=== PATIENT | female | born 1995 | race Caucasian/White ===

== ENCOUNTER 2018-03-22 22:22 | Observation (INO) ==
[2018-03-22 22:49] LABS: Bilirubin,Urine Negative (Negative); Blood,Urine Negative (Negative); Clarity,Urine Cloudy (Clear); Color,Urine Yellow (Yellow); Glucose,Urine (UA) 100 mg/dL (Normal); Ketones,Urine Negative (Negative); Leukocyte Esterase,Urine Small (Negative); Nitrite,Urine Negative (Negative); PH,Urine 6.5 pH Units (5.0-8.0); Protein,Urine 30 mg/dL (Neg-Trace); Specific Gravity,Urine > 1.030 (1.010-1.025); Urobilinogen,Urine Normal (Normal)
[2018-03-22 22:55] LABS: Bacteria,Urine Many per hpf (None-Few); Hyaline Casts,Urine Few per lpf (None-Few); Squamous Epithelial Cell,Urine Many per lpf (None-Few); WBC,Urine 15-30 per hpf (0-3)
--- NOTE | 2018-03-22 22:57 | OB/GYN Progress Note ---
Date of Encounter: 03/23/18 Time of Encounter: 22:54 - Assessment and Plan (1) 38 weeks gestation of Current Visit: Yes Status: Acute (2) Uterine contractions Current Visit: Yes Status: Acute No change on serial cervical exams. Discharged home with labor and when to return to triage precautions. Subjective - Subjective Interval history: 38+ weeks gestation presents to triage for evaluation of contractions. Patient states she started having contractions approximately 5:00 this evening. Since states they were getting closer together approximately 3-5 minutes apart. Reports good movement, denies vaginal bleeding or leaking of fluid. care with Dr. Gardiner Antepartum ROS: movement normal, contractions, no loss of fluid, no vaginal bleeding Objective - Vital Signs Vital Signs: Intake and Output 03/22/18 03/22/18 03/22/18 07:59 15:59 23:59 Other: Weight 83.9 kg Patient Weight 03/22/18 23:59 Weight 83.9 kg - Exam FHR: auscultation normal FHR comments: Baseline 125 Abdomen: Present: normal appearance, soft, gravid Cervical dilation: 3 per RN - Labs Labs: Abnormal lab results Urine Clarity Cloudy (Clear) A 03/22/18 22:37 Ur Specific [place] > 1.030 (1.010-1.025) H 03/22/18 22:37 Urine Protein 30 mg/dL (Neg-Trace) H 03/22/18 22:37 Urine Glucose (UA) 100 mg/dL (Normal) H 03/22/18 22:37 Ur Leukocyte Esterase Small (Negative) H 03/22/18 22:37
[2018-03-22 22:58] LABS: Amphetamine Screen,Urine Negative ng/mL (Cutoff=1000); Barbiturate Screen,Urine Negative ng/mL (Cutoff=200); Benzodiazepines Screen,Urine Negative ng/mL (Cutoff=200); Cannabinoid Screen,Urine Negative ng/mL (Cutoff = 50); Cocaine Screen,Urine Negative ng/mL (Cutoff= 300); Opiate Screen,Urine Negative ng/mL (Cutoff=300); Phencyclidine Screen,Urine Negative ng/mL (Cutoff=25)
== END 2018-03-22 23:50 | disposition home or self-care (01) ==
LOC: 1NENULAB
PROVIDERS: ADMIT Advanced Practice Midwife; ATTEND Advanced Practice Midwife

== ENCOUNTER 2018-03-24 06:00 | Inpatient (IN) ==
[2018-03-24] MEDS ORDERED: Metoclopramide 10 MG/2 ML VIAL IVP PRN (06:40)
[2018-03-24] MEDS ORDERED: Famotidine 20 MG/2 ML VIAL IVP PRN (06:40)
[2018-03-24] MEDS ORDERED: Lidocaine 1% 20 ML MDV INFILT PRN (06:40)
[2018-03-24] MEDS ORDERED: Naloxone 0.4 MG/ML INJ IVP PRN (06:40)
[2018-03-24 07:11] LABS: Basophils % 0.3 %; Eosinophils # 0.1 K/mcL (0.0-0.6); Eosinophils % 1.6 %; Hematocrit 37.7 % (35.3-44.9); Hemoglobin 12.2 g/dL (11.5-15.4); Immature Granulocytes % 0.3 % (0-4); Lymphocytes # 2.1 K/mcL (0.6-4.6); Lymphocytes % 24.4 %; Mean Corpuscular HGB Conc 32.4 g/dL (31.6-35.5); Mean Corpuscular Hemoglobin 27.2 pg (28.0-33.3); Mean Corpuscular Volume 84.2 fL (83.0-100.0); Mean Platelet Volume 10.2 fL (9.4-12.4); Monocytes # 0.7 K/mcL (0.0-1.3); Monocytes % 8.5 %; Neutrophils # 5.6 K/mcL (1.6-8.9); Platelet Count 260 K/mcL (140-400); Red Blood Count 4.48 M/mcL (3.82-4.97); Red Cell Distribution Width 12.9 % (11.5-14.5); Segmented Neutrophils % 64.9 %
[2018-03-24 07:29] LABS: Amphetamine Screen,Urine Negative ng/mL (Cutoff=1000); Barbiturate Screen,Urine Negative ng/mL (Cutoff=200); Benzodiazepines Screen,Urine Negative ng/mL (Cutoff=200); Cannabinoid Screen,Urine Negative ng/mL (Cutoff = 50); Cocaine Screen,Urine Negative ng/mL (Cutoff= 300); Opiate Screen,Urine Negative ng/mL (Cutoff=300); Phencyclidine Screen,Urine Negative ng/mL (Cutoff=25)
--- NOTE | 2018-03-24 07:58 | Anesthesia Evaluation PreOp ---
Date of Encounter: 03/24/18 Time of Encounter: 07:56 - Past History Planned Operation: daphne Cardiac History: Denies any Significant Hx Pulmonary History: Denies Any Significant HX P[employer]ER History: Denies Any Significant HX Other Medical History: GERD Anesthesia History: No Prior Anesthetic Complications, Past Anesthesia (daphne) : Yes Test: Positive Alcohol Use: none Drug use: none Medications and Allergies Vit/Iron Fumarate/FA [ Tablet] 1 each PO DAILY 03/22/18 [ History] 3 Allergy/AdvReac Type Severity Reaction Status Date / Time ondansetron AdvReac Vomiting Verified 03/24/18 06:24 [From Zofran (as hydrochloride)] sulfamethoxazole AdvReac Dizziness Verified 03/24/18 06:24 [From Bactrim] trimethoprim [From Bactrim] AdvReac Dizziness Verified 03/24/18 06:24 - Meds/Allergy Pre-op Review Medications Reviewed: Yes Allergies Reviewed: Yes Beta Blockers on Current Med List: No Anesthesia Results - Labs 03/24/18 06:41 Anesthesia Exam 112/72 93 fht 134 Height: 5'3" Weight: 84 kg NPO (# of Hours): 3 Pain Scale: 2 Pain Scale Used: Numeric (1 - 10) - HEENT Pupil (Motor): Pupils equal Mallampati: II Teeth: Normal Oral Opening: Greater than 3 - PLASTIC [employer]ER LOC: Oriented P[employer] Motor: Normal RUE, Normal LUE, Normal RLE, Normal LLE, Normal Face [employer] Sensory: Normal: RUE, LUE, RLE, LLE, Face - Cardiac Rhythm: Regular Murmur: None - Pulmonary Breath Sounds: bilateral Clear Respiratory Effort: Symmetrical Anesthesia Assess/Plan ASA Score: 2 Modified Regla Scale for Level of Consciousness: Cooperative, oriented, and tranquil Anesthetic Plan: Regional Autologous Blood: No Monitoring Plan: Standard Monitors Recovery Plan: Other (risks discussed, questions answered, consented)
[2018-03-24] MEDS: Ringers Solution, Lactated 1,000 ML IVC SCH ×2 (08:26→12:12)
--- NOTE | 2018-03-24 08:32 | OB/GYN History & Physical ---
Date of Encounter: 03/24/18 Time of Encounter: 08:29 Assessment and Plan (1) 39 weeks gestation of Current visit: Yes Status: Acute Patient 22-year-old 3 para 1 female presents at 9 weeks gestation for induction of labor. On arrival she was having irregular contractions she did have 2 subtle-appearing late decelerations. Cervix is 3 cm dilated 80% effaced -2 station is vertex. Currently does have reactive nonstress test without decelerations. IV is in place we will proceed with amniotomy. The baby tolerates labor induced by amniotomy the contractions remain insufficient make later consider augmentation with Pitocin. History of Present Illness Chief complaint: Here for induction HPI: Ms. Cramer is a 22 year old female female at 39w2d presents for induction of labor. This complicated only by hyperemesis early . She has recently complaints of decreased movement and has history of prior induction for asymmetric intrauterine growth restriction. She has been followed with serial ultrasounds this and has had normal growth with borderline polyhydramnios. Upon arrival she reports irregular contractions. In office yesterday her cervical exam was 3 and a meters dilated 80% effaced with -2 station and vertex presentation. Past Med Surg Social Fam HX - Past Medical History Medical history: no medical history Psychiatric history: no psych history - Past Surgical History Surgical History: other - Social History Smoking Status: Former smoker Smokeless Tobacco Status: No Alcohol use: none Drug use: none - Family History Mother Living Status: Still Living Hx Family Cardiac Disorders: No Hx Family Respiratory Disorders: No Hx Family Cancer: No Hx Family GI Disorders: No Hx Family Endocrine Disorder: No Hx Family Neuromuscular Disorders: No Hx Family Neurologic Disorders: No Hx Family HEENT Disorders: No Hx Family Autoimmune Disorders: No Obstetrical History - Pregnancies : 3 Ab's: 1 Medications and Allergies Vit/Iron Fumarate/FA [ Tablet] 1 each PO DAILY 03/22/18 [ History] 3 Allergy/AdvReac Type Severity Reaction Status Date / Time ondansetron AdvReac Vomiting Verified 03/24/18 06:24 [From Zofran (as hydrochloride)] sulfamethoxazole AdvReac Dizziness Verified 03/24/18 06:24 [From Bactrim] trimethoprim [From Bactrim] AdvReac Dizziness Verified 03/24/18 06:24 Exam - Constitutional Constitutional: well developed, well nourished - HEENT HEENT: EOMI, PERRL - Neck Neck exam: full ROM - Lungs Respiratory exam: CTAB - Cardiovascular Cardiovascular exam: RRR - Abdomen Abdomen: Present: gravid - Extremities Extremities exam: full ROM Deep Tendon Reflex Grade: 2+ Normal - Cervix Dilation: 3 Effacement: 80 Station: -2 Results Result Diagrams: 03/24/18 06:41 Abnormal lab results MCH 27.2 pg (28.0-33.3) L 03/24/18 06:41 All other labs normal. - VTE Reasons for not Prescribing Prophylaxis: Treatment not Indicated - Low risk for VTE
--- NOTE | 2018-03-24 08:36 | OB Labor Progress Note ---
Date of Encounter: 03/24/18 Time of Encounter: 08:34 Labor Progress Note - Subjective Subjective: Patient complains of irregular contractions - Cervix Cervix: 3 similar is dilated, 80% effaced, -2 station - Heart Tones Heart Tones: Reactive nonstress testing without decelerations at this time - Gerty Gerty: Irregular contractions noted which are subjectively mild - Interventions Interventions: Amniotomy performed of moderate amount of moderate meconium-stained fluid - Plan Plan: We will expect spontaneous vaginal delivery. Patient did have question of subtle late decelerations earlier upon arrival to to follow heart tones closely anesthesia has been consulted IV is in place patient is aware that if heart tension again looked questionable section may be required. We will take appropriate measures at delivery because of meconium-stained fluid
[2018-03-24] MEDS ORDERED: *HR* FentaNYL (PF) 100 MCG/2 ML VIAL EP ONE (11:39)
[2018-03-24] MEDS ORDERED: *HR* Ropivacaine/PF 0.2% 20 ML VIAL EP ONE (11:39)
[2018-03-24] MEDS ORDERED: Epidural Premix (fent/bupiv) 110 ML EP SCH (11:45)
[2018-03-24] MEDS ORDERED: Epidural Premix (fent/bupiv) 110 ML EP ONE (11:47)
--- NOTE | 2018-03-24 12:14 | Anesthesia Procedures ---
Date of Encounter: 03/24/18 Time of Encounter: 12:12 Procedures: Anesthesia - Epidural/Spinal Patient ID/Chart reviewed: Yes Patient examined: Yes OB Eval: Gestational age: 39 OB Eval: : 3 OB Eval: Hx Para: 1 OB Eval: Dilated at (cm): 5 OB Eval: Contractions: Non-stressed pattern Consent Obtained: Yes Supplemental Oxygen: None/Room Air Site Prep: Aseptic Technique, Sterile prep and drape, 0.5% Chlorhexidine/Alcohol Patient position: upright Local Anesthetic: Lidocaine 1% Amount of Local Anesthetic used: 3 Touhy Needle Gauge: 18 Touhy Needle Depth (cm): 6 Catheter Depth at Skin (cm): 15 Test Dose (1.5% Lido + Epi): Volume given (mls): 3 Test Dose Result: Negative Loading Dose: Fentanyl (mcg): 100 Loading Dose: Other: rop 0.2% 10cc Loading Dose Administered: Thru Touhy Needle Infusion Med: 0.125% Bupivacaine w/ 2 mcg/ml Fentanyl Infusion Rate (mls/hr): 15 (pcea 5cc q30") Catheter Secured in Place: Tegaderm Interspace Used: L2-L3 Loss of Resistance (JAN): Yes Blood: No CSF: No Paresthesia: No Procedure: aseptic, tolerated well, VSS, effective Vitals + FHT's: 122/78 88 fht 133
[2018-03-24] MEDS ORDERED: EPHEDrine 50 MG/ML VIAL ONE (12:15)
[2018-03-24] MEDS ORDERED: Oxytocin 20 units/ LR 1000 mL 20 UNIT/1,000 ML BAG IVC ONE (13:38)
[2018-03-24] MEDS ORDERED: Oxytocin 20 units/ LR 1000 mL 20 UNIT/1,000 ML BAG IVC SCH ×2 (13:45→19:29)
--- NOTE | 2018-03-24 16:54 | OB/GYN Procedure Note ---
Delivery - Delivery Date: 03/24/18 Provider: Jaime Herndon Intrapartum events: none Delivery induction: AROM Delivery augmentation: pitocin Delivery monitor: external FHT, external uterine Anesthesia: epidural Quantitated Blood Loss: 100 - (s) Infant A Infant Delivery Date: 03/24/18 Infant Delivery Time: 16:38 Presentation: vertex Position: CARLOS Route of delivery: Gender: Female Viability: Viable Pounds: 6 Ounces: 13 at 1 minute: 9 at 5 mins: 9 Specimens collected: cord blood Placenta: spontaneous Cord: 3 umbilical vessels - Repair Episiotomy: none Laceration Description: None - Complications Delivery complications: none - Disposition Mom disposition: stable in LDR disposition: stable in LDR - Comments Comments: Pt s/p of liveborn female infant over intact perineum from CARLOS without incident. Cord clamped and cut and taken to warmer where respiratory therapy was in attendance. Spont delivery of meconium stained placenta. EBL 100. Mother and recovered in LDR.
[2018-03-24] MEDS ORDERED: Measles/Mumps/Rubella Vacc 0.5 ML VIAL SQ PRN (19:29)
[2018-03-24] MEDS ORDERED: Rho Immune Globulin 1,500 UNIT SYRINGE IM PRN (19:29)
[2018-03-24] MEDS ORDERED: Acetaminophen 325 MG TABLET PO PRN (19:29)
[2018-03-24] MEDS: Ibuprofen 600 MG TABLET PO PRN (20:38)
[2018-03-25 04:35] LABS: Basophils % 0.2 %; Eosinophils # 0.1 K/mcL (0.0-0.6); Eosinophils % 1.1 %; Hematocrit 31.7 % (35.3-44.9); Immature Granulocytes % 0.2 % (0-4); Lymphocytes % 19.4 %; Mean Corpuscular HGB Conc 32.5 g/dL (31.6-35.5); Mean Corpuscular Hemoglobin 27.3 pg (28.0-33.3); Mean Corpuscular Volume 84.1 fL (83.0-100.0); Mean Platelet Volume 10.1 fL (9.4-12.4); Monocytes # 0.9 K/mcL (0.0-1.3); Neutrophils # 7.2 K/mcL (1.6-8.9); Platelet Count 221 K/mcL (140-400); Red Blood Count 3.77 M/mcL (3.82-4.97); Red Cell Distribution Width 12.9 % (11.5-14.5); Segmented Neutrophils % 70.1 %
[2018-03-25 04:40] LABS: Hemoglobin 10.3 g/dL (11.5-15.4)
[2018-03-25] MEDS: Ibuprofen 600 MG TABLET PO PRN (05:02)
[2018-03-25] MEDS ORDERED: Prenatal Vit/FA 1 EACH TABLET PO SCH (09:00)
--- NOTE | 2018-03-25 09:02 | Discharge Summary ---
Date of Encounter: 03/25/18 Time of Encounter: 09:00 - Discharge Diagnosis (1) Vaginal delivery Priority: Primary Status: Acute Comments: Pt meeting all milestones. Pt requesting discharge home this afternoon. - Discharge Medications Prescriptions: Ibuprofen [Motrin] 600 mg PO Q6HR PRN #30 tablet PRN Reason: Cramping Docusate [Colace] 100 mg PO BID #30 capsule Home Medications: Vit/Iron Fumarate/FA [ Tablet] 1 each PO DAILY 03/22/18 [ History] Docusate [Colace] 100 mg PO BID #30 capsule 03/25/18 [Rx] Ibuprofen [Motrin] 600 mg PO Q6HR PRN #30 tablet 03/25/18 [Rx] Allergies/Adverse Reactions: 3 Allergy/AdvReac Type Severity Reaction Status Date / Time ondansetron AdvReac Vomiting Verified 03/24/18 06:24 [From Zofran (as hydrochloride)] sulfamethoxazole AdvReac Dizziness Verified 03/24/18 06:24 [From Bactrim] trimethoprim [From Bactrim] AdvReac Dizziness Verified 03/24/18 06:24 Data Procedures and tests throughout hospitalization: Laboratory Tests 03/24/18 03/24/18 03/25/18 06:40 06:41 04:04 WBC 8.6 10.3 RBC 4.48 3.77 L Hgb 12.2 10.3 L D Hct 37.7 31.7 L MCV 84.2 84.1 MCH 27.2 L 27.3 L MCHC 32.4 32.5 RDW 12.9 12.9 Plt Count 260 221 MPV 10.2 10.1 Immature Gran % 0.3 0.2 Seg Neutrophils % 64.9 70.1 Lymphocytes % 24.4 19.4 Monocytes % 8.5 9.0 Eosinophils % 1.6 1.1 Basophils % 0.3 0.2 Neutrophils # 5.6 7.2 Lymphocytes # 2.1 2.0 Monocytes # 0.7 0.9 Eosinophils # 0.1 0.1 Basophils # 0.0 0.0 Urine Opiates Screen Negative Ur Barbiturates Screen Negative Ur Phencyclidine Scrn Negative Ur Amphetamines Screen Negative U Benzodiazepines Scrn Negative Urine Cocaine Screen Negative U Marijuana (THC) Screen Negative Labs on day of discharge: Labs from last 24 hours 03/25/18 04:04 WBC 10.3 RBC 3.77 L Hgb 10.3 L D Hct 31.7 L MCV 84.1 MCH 27.3 L MCHC 32.5 RDW 12.9 Plt Count 221 MPV 10.1 Immature Gran % 0.2 Seg Neutrophils % 70.1 Lymphocytes % 19.4 Monocytes % 9.0 Eosinophils % 1.1 Basophils % 0.2 Neutrophils # 7.2 Lymphocytes # 2.0 Monocytes # 0.9 Eosinophils # 0.1 Basophils # 0.0 Date of admission: 03/24/18 06:08 Primary care physician: Sandra Zelaya Consults: 03/24/18 19:29 Consult to Receiving Associate [CONS] Routine Comment: Vaginal delivery, consult needed Discharging clinician: Lisbeth Norwood Anticipated date of discharge: 03/25/18 - Patient Status Disposition: Home, Self-Care Condition: Good Functional capacity at discharge: independent ambulation Overall status at discharge: patient is progressing back to baseline - Discharge Instructions Instructions: Vaginal Delivery (DC) Follow Up With: Sandra Zelaya DO [Primary Care Provider] - Rachel Gardiner DO [Partnered Physician] - 04/28/18 9:45 am - Diet and Activity Activity: increase activity as tolerated Diet: regular diet Hospital Course Reason for admission: induction of labor Delivery: Episiotomy: none Laceration: none Other procedures: none complications: none Discharge diagnosis: IUP at term delivered [place] baby: female Hospital course: - Delivery Date: 03/24/18 Provider: Jaime Herndon Intrapartum events: none Delivery induction: AROM Delivery augmentation: pitocin Delivery monitor: external FHT, external uterine Anesthesia: epidural Quantitated Blood Loss: 100 - (s) Infant A Infant Delivery Date: 03/24/18 Infant Delivery Time: 16:38 Presentation: vertex Position: CARLOS Route of delivery: Gender: Female Viability: Viable Pounds: 6 Ounces: 13 at 1 minute: 9 at 5 mins: 9 Specimens collected: cord blood Placenta: spontaneous Cord: 3 umbilical vessels - Repair Episiotomy: none Laceration Description: None - Complications Delivery complications: none - Disposition Mom disposition: home PPD1 disposition: home with mother, bottle feeding Time Attestation: Total time spent providing and/or coordinating discharge services: Time Spent: Less than 30 minutes Exam - Constitutional Vitals: Temp Pulse Resp BP Pulse Ox 98 F 86 16 90/57 98 03/25/18 03:00 03/25/18 03:00 03/25/18 03:00 03/25/18 03:00 03/25/18 03:00 General appearance IM: A&O X 3, pleasant, no acute distress - Respiratory Respiratory exam: Present: CTAB - Cardiovascular Cardiovascular exam IM: Present: RRR, +S1, +S2 - GI/Abdominal GI/Abdominal exam IM: soft - Uterine Tone: Firm Uterus Position: At Umbilicus - Extremities Exam Extremities exam IM: Present: normal inspection - Neurological Exam Neurological exam: normal gait, oriented X3 - Psychiatric Additional comments: reports good mood
[2018-03-25 15:53] VITALS: BP 129/79
== END 2018-03-25 17:00 | disposition home or self-care (01) | DRG 560 ==
LOC: 1NENULAB 06:08 → 1NENUOBS 20:41
PROVIDERS: ADMIT Obstetrics & Gynecology; ATTEND Obstetrics & Gynecology